=== PATIENT | male | born 1950 | race Two or more races ===

== ENCOUNTER 2018-05-03 07:33 | Day surgery (SDC) ==
[2018-05-03] MEDS ORDERED: LIDOCAINE 1% 20 ML MDV ID STA (08:02)
[2018-05-03] MEDS ORDERED: DIPRIVAN 20 ML VIAL IVP ONE (09:12)
[2018-05-03] MEDS ORDERED: VERSED ONE (09:12)
[2018-05-03 16:41] VITALS: BP 122/56; TEMP 98.3
--- NOTE | 2018-05-05 10:20 | OP ---
INDICATIONS FOR PROCEDURE: 67-year-old gentleman presents for screening colonoscopy exam. He is also scheduled for endoscopy for evaluation of intermittent dysphagia mostly to pills. MEDICATIONS: SEE ANESTHESIA NOTES. PROCEDURE: 1. ENDOSCOPY, ESOPHAGEAL BIOPSY, SAMOAN DILATATION 2. COLONOSCOPY, SNARE POLYPECTOMY REPORT: The risks, benefits, alternatives and limitations were discussed in detail with the patient. Informed consent was obtained. After adequate sedation was achieved, the video endoscope was introduced in the posterior pharynx and esophagus under direct vision and easily advanced this down to the second portion of the duodenum, I then slowly withdrew. The duodenal mucosa appeared unremarkable as did the duodenal bulb. The antrum and body were unremarkable. The scope is retroflexed to look at cardia and fundus which is unremarkable. The scope was anteflexed and withdrawn back in the esophagus. At the GE junction there is mild inflammation. There were two small breaks in the mucosa consistent with reflux disease. The GE junction was also slightly irregular. I biopsied the GEJ for histological review. Present in this area was also a stricture causing mild luminal narrowing. The remaining esophagus was unremarkable. I advanced the scope back down the gastric lumen. I placed a guidewire and withdrew the scope. Over the guidewire, I easily passed a 54 [place] dilator. The patient tolerated the procedure well with stable vital signs and pulse oximetry throughout. The patient's bed was turned. A digital rectal exam revealed good tone, no masses. The colonoscope was introduced in the rectum and advanced under direct visual guidance to the cecum and the cecum was identified by the appendiceal orifice and IC valve. I then slowly withdrew the scope in a circumferential manner examining the mucosa quite carefully. I looked on the proximal and distal side of folds and flexures as best as possible. I was able to retroflex the scope in the right colon and left colon to increase visualization. At the hepatic flexure area there is a small 5 mm semi sessile polyp that I removed by snare technique. In the proximal transverse area there is a 5 or 6 mm semi sessile polyp that was removed by snare technique. In the proximal descending area there was a 6 to 7 semi sessile polyp that I removed by snare technique. There were several small mouth diverticula scattered throughout the distal sigmoid area. On retroflex view of the anal canal there was a small non engorged internal hemorrhoid. The prep was adequate. THe withdrawal time was 10 minutes and 38 seconds. The patient tolerated the procedure well with stable vital signs and pulse oximetry throughout. IMPRESSION: 1. GRADE I REFLUX ESOPHAGITIS 2. DISTAL ESOPHAGEAL STRICTURE, DILATED ABOVE 3. THREE (3) COLONIC POLYPS REMOVED 4. SIGMOID DIVERTICULOSIS 5. SMALL INTERNAL HEMORRHOID RECOMMENDATIONS: 1. Strict reflux precautions. 2. I discussed with him to see if he has been taking his PPI routinely or just p.r.n. If he is taking it p.r.n. I will have him start taking it routinely. If he has been taking it routinely then I will suggest he start taking an [id number] H2 cristhian q.h.s. to help treat his reflux esophagitis. In the meantime, I will discuss with him the importance of reflux precautions and healthy lifestyle. 3. Await colon polyp pathology. IF there are adenomatous changes as expected, I recommend surveillance colonoscopy examination again in three years. 4. High fiber diet. 5. Will see him back in the office as needed. CC. DR. JOSE LOCKHART
== END 2018-05-03 10:45 | disposition home or self-care (01) ==
LOC: SURG 07:33
PROVIDERS: ATTEND Internal Medicine Gastroenterology
DX: D12.3 Benign neoplasm of transverse colon (principal); R13.10 Dysphagia, unspecified; K21.0 Gastro-esophageal reflux disease with esophagitis; D12.5 Benign neoplasm of sigmoid colon; K63.5 Polyp of colon; K22.2 Esophageal obstruction; K57.30 Diverticulosis of large intestine without perforation or abscess without bleeding; K64.8 Other hemorrhoids